=== PATIENT | female | born 1990 | race Asian ===

== ENCOUNTER 2024-05-12 17:51 | Emergency (ER) | payer MEDICAID ==
[~2024-05-12] VITALS: Ht 154.9 cm; Wt 72.0 kg
[2024-05-12 18:45] VITALS: BP 121/75; PULSE 94; RESP 17; TEMP 97.6; O2SAT 100
== END 2024-05-12 19:10 | disposition home or self-care (01) ==
LOC: ER 17:51
DX: T75.1XXA Unspecified effects of drowning and nonfatal submersion, initial encounter (principal); Y93.89 Activity, other specified; Y92.89 Other specified places as the place of occurrence of the external cause; Y99.8 Other external cause status
CPT/HCPCS: 71045; 99283

== ENCOUNTER 2025-06-21 20:35 | Emergency (ER) | payer MEDICAID ==
[~2025-06-21] VITALS: Ht 154.9 cm; Wt 154.2 kg
--- NOTE | 2025-06-21 20:56 | Physician Documentation ---
History of Present Illness ~ Chief Complaint: Complications Stated Complaint: COMPLICATIONS Time Seen by MD: 20:53 Primary Medical Doctor: EMIL TORRES Source: patient Mode of Arrival: POV Exam Limitations: no limitations HPI 34-year-old female with complications 2 para 0 is approximately 11 weeks does not know the exact date of her menstrual cycle which he states is approximately the beginning of every month. Patient has seen her OB and does have an appointment in 2 weeks. Patient states the OB is aware of the light spotting. Patient is not spotting today but has increased in frequency of blood noted for the past few weeks. Patient has been spotting for approximately 3 and half weeks. Patient denies any cramping or heavy bleeding. Medication Reconciliation Allergies: Coded Allergies: No Known Allergies (Unverified , 05/12/24) Past Medical History Past Medical History: No Pertinent History Past Surgical History: no surgical history Alcohol Use: None Drug Use: none Lives with: Spouse Lives In: Home Review of Systems All Other Systems at this time: Reviewed and Negative Female Genitalia: Reports: see HPI Physical Exam Physical Exam Vital Signs: RN Vital Signs have been reviewed: Yes, Temperature: 98.4, Source: Oral, Heart Rate: 96, Respiratory Rate: 16, BP: 138/76, Pulse Oximetry: 99, Weight: 154.200 Oxygen Flow Rate: 0 Physical Exam General: Alert, no apparent distress. HEENT: moist mucous membranes. Neck: Full range of motion. Respiratory: No respiratory distress speaking in full sentences Chest: No accessory muscle use. Cardiovascular: Appears well perfused Neurologic: Oriented x4. Psychiatric: Normal mood and affect. Skin: Normal color, warm and dry. No edema, no ecchymosis. Progress Results/Orders Results/Orders Orders - LUDIVINA GUILLEN NP Hcg Serum Qt (06/21/25 20:56) US OB (06/21/25 20:56) Completed Orders - LUDIVINA GUILLEN NP Ua W/Microscopic, Cult If Ind (06/21/25 20:49) Vital Signs 06/21/25 20:40 Temp 98.4 Pulse 96 Resp 16 B/P (MAP) 138/76 Pulse Ox 99 O2 Flow Rate 0 Laboratory Tests Test 06/21/25 20:49 06/21/25 21:14 Urine Specimen Description Cln catch midstream Urine Color Yellow Urine Clarity Clear Urine pH 6.0 Urine Specific [place] 1.020 Urine Protein Negative Urine Glucose (UA) Negative Urine Ketones Negative Urine Occult Blood Small Urine Nitrite Negative Urine Bilirubin Negative Urine Urobilinogen 0.2 Urine Leukocyte Esterase Negative Urine RBC 3-10 Urine WBC 0-4 Urine Squamous Epithelial Cells Few Urine Bacteria 2+ Urine Culture Indicated Not ind Volume Urine Centrifuged 10 ml Urine Comment Medical Decision Making Additional information obtaine: N/A Findings Light spotting but states that it has changed from a pink hue and mucousy to some spotting that is been more bright red. Patient is approximately 11 weeks. Quantitative hCG and ultrasound has been ordered to evaluate. Preliminary report from ultrasound indicates good heartbeat no signs of subchorionic hemorrhage, with otherwise unremarkable ultrasound. Fetus measuring 10 weeks 6 days. Differential Dx:Considerations: Include: -complete, - incomplete, -missed, -threatened, Cystitis: Acute, Vaginal bleeding Departure Time of Disposition: 22:17 Disposition: 01 HOME / SELF CARE / HOMELESS Impression: Primary Impression: Complication of Condition: Stable Discharge Instructions: Threatened Miscarriage, [id number] Additional Instructions: Maintain appointment with OB. Ultrasound tonight was reassuring. Continue to monitor and follow up feel free to return to the ER for any new or worsening symptoms Referrals: NO PRIMARY CARE PROVIDER (PCP) Education Educated: Patient, Family Educated regarding: diagnosis, treatment, need for follow up Signature Scribe Signature: No scribe Attestation: The note accurately reflects work and decisions made by me.Ludivina Guillen - OMAR 06/21/25 20:56 LUDIVINA GUILLEN NP Jun 21, 2025 20:56
[2025-06-21 21:31] LABS: LEUKOCYTE ESTERASE ,URINE NEGATIVE (Neg); NITRITES, URINE NEGATIVE (Neg); OCCULT BLOOD,URINE SMALL (Neg)
[2025-06-21 21:33] LABS: UA COLLECTION TYPE CLN CATCH MIDSTREAM
[2025-06-21 21:37] LABS: SQUAMOUS EPITHELIAL CELL,UR FEW /LPF (FEW)
[2025-06-21 22:40] VITALS: BP 132/72; PULSE 94; RESP 18; TEMP 98.6; O2SAT 99
--- NOTE | 2025-06-21 22:48 | RADIOLOGY REPORT ---
OB ULTRASOUND <14 WEEKS: HISTORY: Intermittent spotting, approximately 11 weeks TECHNIQUE: Multiple real-time grayscale sonographic images of the pelvis with duplex Doppler color flow, spectral and M-mode analysis. TRANSDUCERS: Transabdominal and transvaginal COMPARISON: None FINDINGS: The uterus measures 12.7 x 9.1 x 0.4 cm The cervix appears closed. Bilateral ovaries are not visualized. IUP single fetus at 10 weeks 6 days average ultrasound age based on mean crown- rump length of 3.9 cm. heart rate detected at 168 beats per minute. Yolk sac not identified. IMPRESSION: 1. IUP single live fetus 10 weeks 6 days AUA corresponding to an BENNIE of 01/11/2026. 2. No acute abnormality detected.
== END 2025-06-21 22:41 | disposition home or self-care (01) ==
LOC: ER 20:36
DX: O26.891 Other specified pregnancy related conditions, first trimester (principal); N93.8 Other specified abnormal uterine and vaginal bleeding; Z3A.11 11 weeks gestation of pregnancy
CPT/HCPCS: 36415; 76801; 81001; 84702; 99284